=== PATIENT | male | born 1940 | race Caucasian/White ===

== ENCOUNTER 2018-01-07 18:53 | Inpatient (IN) | payer MEDICARE, MEDICAID ==
[~2018-01-07] VITALS: Ht 167.6 cm; Wt 50.4 kg
[~2018-01-07 18:53] MED LIST: ALBU0.63 NEB; ALBU8.5H5 INH; ASPI-621 PO; BUSP10TA PO; CARV-39 PO; CARV12.52 PO; CYCL1DRO OP; FURO-92 PO; FURO-93 PO; FURO20TA3 PO; LISI5TAB7 PO; MAGNESIUM DR64 MG PO; MULT1TAB13 PO; OMEP-110 PO; TIOT18CA INH; ZOLP10TA5 PO
[2018-01-07] MEDS ORDERED: BUSP10TA PO (20:42)
[2018-01-07] MEDS ORDERED: TRAZ300T2 PO (20:42)
[2018-01-07] MEDS ORDERED: OMEP40CA6 PO (20:42)
[2018-01-07] MEDS ORDERED: metformin PO (20:43)
[2018-01-07] MEDS ORDERED: ACETAMINOPHEN 325 MG TABLET ONE (20:59)
[2018-01-07] MEDS ORDERED: ACETAMINOPHEN 325 MG TABLET PO ONE (21:00)
[2018-01-07] MEDS ORDERED: TIOT18CA INH (21:00)
[2018-01-07] MEDS ORDERED: DIAZEPAM 5 MG/ML, 10ML VIAL IV ONE (21:00)
[2018-01-07 21:02] LABS: BASOPHILS # (AUTO) 0.03 x10^3/uL (0-0.1); BASOPHILS % (AUTO) 0 % (0-1); EOSINOPHILS % (AUTO) 1 % (1-7); LYMPHOCYTES # (AUTO) 0.55 x10^3/uL (1-3.4); LYMPHOCYTES % (AUTO) 4 % (22-44); MD NO; MEAN CORPUSCULAR HEMOGLOBIN 33.5 pg (27.5-34.5); MEAN CORPUSCULAR HGB CONC 33.4 g/dL (33.2-36.2); MEAN CORPUSCULAR VOLUME 100.2 fL (81-97); MEAN PLATELET VOLUME 7.7 fL (7.4-10.4); MONOCYTES # (AUTO) 0.47 x10^3/uL (0.2-0.8); MONOCYTES % (AUTO) 3 % (2-9); NEUTROPHILS # (AUTO) 12.74 x10^3/uL (1.8-6.8); NEUTROPHILS % (AUTO) 92 % (42-75); PLATELET COUNT 293 x10^3/uL (130-400); RED BLOOD COUNT 3.94 x10^6/uL (4.38-5.82); RED CELL DISTRIBUTION WIDTH 13.9 % (9.4-14.8)
[2018-01-07 21:12] LABS: INTERNATIONAL NORMALIZED RATIO 1.05 (0.93-1.1); PROTHROMBIN TIME 10.9 Seconds (9.6-11.5)
[2018-01-07 21:13] LABS: ALANINE AMINOTRANSFERASE 23 U/L (12-78); ALBUMIN 2.8 g/dL (3.4-5.0); ANION GAP 2 mmol/L (5-15); CALCIUM 8.3 mg/dL (8.5-10.1); CHLORIDE 94 mmol/L (98-107); CREATININE 1.05 mg/dL (0.7-1.3)
[2018-01-07 21:15] LABS: ALKALINE PHOSPHATASE 69 U/L (45-117); BILIRUBIN,TOTAL 0.5 mg/dL (0.2-1.0); TOTAL PROTEIN 6.2 g/dL (6.4-8.2)
[2018-01-07] MEDS ORDERED: ONDANSETRON 2MG/ML, 2ML IVPush PRN (21:30)
[2018-01-07] MEDS ORDERED: HEPARIN 5,000 UNITS/ML, 1ML SQ SCH (21:30)
[2018-01-07] MEDS ORDERED: hydrALAzine 20 MG/ML, 1ML IVPush PRN (21:30)
[2018-01-07] MEDS ORDERED: POLYETHYLENE GLYCOL 17 GM PACKET PO PRN (21:30)
[2018-01-07] MEDS ORDERED: PROMETHAZINE 25 MG/ML, 1ML IM PRN (21:30)
[2018-01-07] MEDS ORDERED: METHOCARBAMOL 500 MG TABLET PO PRN (21:30)
[2018-01-07] MEDS ORDERED: ONDANSETRON ODT 4 MG PO PRN (21:30)
[2018-01-07] MEDS ORDERED: DOCUSATE 100 MG CAPSULE PO PRN (21:30)
[2018-01-07] MEDS ORDERED: LABETALOL 5MG/ML, 20ML IVPush PRN (21:30)
[2018-01-07] MEDS ORDERED: BISACODYL 10 MG SUPP PR PRN (21:30)
[2018-01-07] MEDS ORDERED: GABAPENTIN 300 MG CAPSULE PO PRN (21:30)
[2018-01-07] MEDS ORDERED: morphine SULFATE 10 MG/ML, 1ML IVPush PRN (21:30)
[2018-01-07] MEDS: NICOTINE 14MG/24 HR PATCH.TD24 TD SCH (21:30)
[2018-01-07 21:46] LABS: HEMOGLOBIN A1C 6.6 % (4.2-6.3)
[2018-01-07] MEDS: SODIUM CHLORIDE 0.9% 1,000 ML IV SCH (21:53)
[2018-01-07 22:04] LABS: FREE T4 (FREE THYROXINE) 1.15 ng/dL (0.76-1.46); THYROID STIMULATING HORMONE 1.59 mIU/L (0.358-3.740)
[2018-01-07 22:12] VITALS: BP 127/66
[2018-01-07] MEDS: BUSPIRONE 10 MG TABLET PO SCH (23:01)
[2018-01-07] MEDS: TRAZODONE 150MG TABLET PO SCH (23:01)
[2018-01-07] MEDS ORDERED: ALBUTEROL/IPRATROPIUM 2.5MG/0.5MG, 3 ML NPPB PRN (23:30)
[2018-01-07] MEDS: INSULIN LISPRO 100 UNITS/ML, PEN SQ-INSULIN SCH (23:38)
[2018-01-07] MEDS: OXYcodone IR 5MG TABLET PO PRN (23:59)
[2018-01-08 00:46] VITALS: BP 86/47
[2018-01-08 02:09] VITALS: BP 108/66
[2018-01-08 03:35] LABS: CULTURE INDICATED? YES; MICROSCOPIC INDICATED
[2018-01-08 05:22] LABS: BASOPHILS % (AUTO) 0 % (0-1); EOSINOPHILS % (AUTO) 0 % (1-7); LYMPHOCYTES # (AUTO) 0.73 x10^3/uL (1-3.4); LYMPHOCYTES % (AUTO) 6 % (22-44); MD NO; MEAN CORPUSCULAR HEMOGLOBIN 33.5 pg (27.5-34.5); MEAN CORPUSCULAR HGB CONC 33.4 g/dL (33.2-36.2); MEAN CORPUSCULAR VOLUME 100.4 fL (81-97); MEAN PLATELET VOLUME 8.1 fL (7.4-10.4); MONOCYTES # (AUTO) 1.06 x10^3/uL (0.2-0.8); MONOCYTES % (AUTO) 8 % (2-9); NEUTROPHILS # (AUTO) 11.21 x10^3/uL (1.8-6.8); NEUTROPHILS % (AUTO) 86 % (42-75); PLATELET COUNT 231 x10^3/uL (130-400); RED BLOOD COUNT 3.43 x10^6/uL (4.38-5.82); RED CELL DISTRIBUTION WIDTH 13.9 % (9.4-14.8)
[2018-01-08 05:34] LABS: CHLORIDE 96 mmol/L (98-107)
[2018-01-08 05:42] LABS: ALANINE AMINOTRANSFERASE 23 U/L (12-78); ALBUMIN 2.8 g/dL (3.4-5.0); ALKALINE PHOSPHATASE 61 U/L (45-117); ANION GAP 6 mmol/L (5-15); CALCIUM 8.5 mg/dL (8.5-10.1); CHOL/HDL RATIO 2.2; CHOLESTEROL, TOTAL 84 mg/dL (140-239); CREATININE 0.92 mg/dL (0.7-1.3); HDL CHOL % 45 % (26-37); HDL CHOLESTEROL (DIRECT) 38 mg/dL (40-60); LDL CHOLESTEROL,CALCULATED 35 mg/dL (54-169); LDL/HDL RATIO 0.9 (0.5-3.0); TOTAL PROTEIN 5.6 g/dL (6.4-8.2); TRIGLYCERIDES 55 mg/dL (50-200); VLDL CHOLESTEROL 11 mg/dL (0-25)
[2018-01-08] MEDS: SODIUM CHLORIDE 0.9% 1,000 ML IV SCH (07:15)
[2018-01-08] MEDS: ALBUTEROL/IPRATROPIUM 2.5MG/0.5MG, 3 ML NPPB SCH ×4 (07:40→19:36)
[2018-01-08 07:45] VITALS: BP 124/68
[2018-01-08] MEDS ORDERED: CARVEDILOL 6.25 MG TABLET ONE (07:51)
[2018-01-08] MEDS: OMEPRAZOLE 20 MG CAPSULE.DR PO SCH (08:00)
[2018-01-08] MEDS: CARVEDILOL 12.5 MG TABLET PO SCH (08:01)
[2018-01-08] MEDS: BUSPIRONE 10 MG TABLET PO SCH ×2 (08:01→20:03)
[2018-01-08] MEDS: LISINOPRIL 5 MG TABLET PO SCH (08:02)
[2018-01-08] MEDS: OXYcodone IR 5MG TABLET PO PRN (08:02)
[2018-01-08] MEDS ORDERED: IPRATROPIUM 0.5 MG/2.5 ML INHA NPPB SCH (09:00)
[2018-01-08] MEDS: INSULIN LISPRO 100 UNITS/ML, PEN SQ-INSULIN SCH ×3 (11:30→20:06)
[2018-01-08] MEDS ORDERED: MIDAZOLAM 1 MG/ML, 2ML ONE (12:53)
[2018-01-08] MEDS ORDERED: FENTANYL PF 100 MCG/2ML ONE ×2 (12:53→14:56)
[2018-01-08] MEDS ORDERED: ROCURONIUM 10MG/ML,5ML ONE (13:17)
[2018-01-08] MEDS ORDERED: ONDANSETRON 2MG/ML, 2ML ONE (13:17)
[2018-01-08] MEDS ORDERED: PROPOFOL 10 MG/ML, 20ML ONE (13:17)
[2018-01-08] MEDS ORDERED: DEXAMETHASONE 4 MG/ML, 1ML ONE (13:17)
[2018-01-08] MEDS ORDERED: HALOPERIDOL 5 MG/ML IV PRN (13:30)
[2018-01-08] MEDS ORDERED: HYDROmorphone 1 MG/ML, 1ML IV PRN ×2 (13:30→16:30)
[2018-01-08] MEDS ORDERED: MORPHINE SULFATE 4 MG/ML, 1ML IVPush PRN (13:30)
[2018-01-08] MEDS ORDERED: ONDANSETRON 2MG/ML, 2ML IV PRN ×2 (13:30→16:30)
[2018-01-08] MEDS ORDERED: hydrALAzine 20 MG/ML, 1ML IV PRN (13:30)
[2018-01-08] MEDS ORDERED: LABETALOL 5MG/ML, 20ML IV PRN (13:30)
[2018-01-08] MEDS ORDERED: MEPERIDINE/PF 25MG/0.5ML IVPush PRN (13:30)
[2018-01-08] MEDS ORDERED: ALBUTEROL SULFATE 2.5 MG/3 ML NPPB PRN (13:30)
[2018-01-08] MEDS ORDERED: EPHEDRINE 50 MG/ML, 1ML IVPush PRN (13:30)
[2018-01-08] MEDS ORDERED: PROMETHAZINE 12.5 MG SUPP PR PRN (13:30)
[2018-01-08] MEDS ORDERED: ONDANSETRON ODT 8 MG PO PRN (13:30)
[2018-01-08] MEDS ORDERED: PROMETHAZINE 25 MG/ML, 1ML IV PRN (13:30)
[2018-01-08] MEDS ORDERED: HYDROmorphone 2 MG/ML, 1ML ONE (14:56)
[2018-01-08] MEDS ORDERED: OXYcodone 5 MG/5 ML ORAL.SOL UDC ONE (14:56)
[2018-01-08] MEDS: OXYcodone 5 MG/5 ML ORAL.SOL UDC PO PRN (14:59)
[2018-01-08] MEDS: FENTANYL PF 100 MCG/2ML IV PRN ×2 (15:02→15:09)
[2018-01-08] MEDS ORDERED: HYDROcodone/APAP 7.5-325MG/15ML UDC PO PRN (16:30)
[2018-01-08] MEDS: KETOROLAC 30 MG/1 ML IV SCH (16:30)
[2018-01-08] MEDS ORDERED: DIPHENHYDRAMINE 25 MG CAPSULE PO PRN (16:30)
[2018-01-08] MEDS ORDERED: OXYcodone/APAP 5/325MG TABLET PO PRN (16:30)
[2018-01-08] MEDS: metFORMIN 500 MG TABLET PO SCH (17:00)
[2018-01-08 19:00] VITALS: BP 98/49
[2018-01-08] MEDS: TRAZODONE 150MG TABLET PO SCH (20:03)
[2018-01-08] MEDS: SODIUM CHLORIDE FLUSH 10ML SYR IVF SCH (20:04)
[2018-01-08] MEDS: DOCUSATE 100 MG CAPSULE PO SCH (20:04)
[2018-01-08] MEDS: NICOTINE 14MG/24 HR PATCH.TD24 TD SCH (20:05)
[2018-01-08] MEDS ORDERED: SODIUM CHLORIDE 0.9% 1,000 ML IVBOLUS PRN (21:38)
[2018-01-08] MEDS ORDERED: SODIUM CHLORIDE 0.9%, 500ML IVBOLUS ONE (22:00)
[2018-01-08 22:45] VITALS: BP 88/50
[2018-01-08 23:00] VITALS: BP 80/43
[2018-01-09] VITALS (12 sets, daily range): BP systolic 88–128; BP diastolic 47–63
[2018-01-09] MEDS: CEFAZOLIN PMX 1GM/50ML 50 ML IVPB SCH ×2 (00:35→06:35)
[2018-01-09] MEDS: KETOROLAC 30 MG/1 ML IV SCH ×2 (00:35→07:55)
[2018-01-09] MEDS ORDERED: SODIUM CHLORIDE 0.9%, 500ML IVBOLUS ONE (02:30)
[2018-01-09] MEDS ORDERED: ENOXAPARIN 40 MG/0.4 ML SQ SCH (06:00)
[2018-01-09] MEDS: ALBUTEROL/IPRATROPIUM 2.5MG/0.5MG, 3 ML NPPB SCH ×4 (07:48→19:34)
[2018-01-09] MEDS: OMEPRAZOLE 20 MG CAPSULE.DR PO SCH (07:49)
[2018-01-09] MEDS: BUSPIRONE 10 MG TABLET PO SCH ×2 (07:49→20:56)
[2018-01-09] MEDS: LISINOPRIL 5 MG TABLET PO SCH ×2 (07:51→07:56)
[2018-01-09] MEDS: metFORMIN 500 MG TABLET PO SCH ×2 (07:52→16:50)
[2018-01-09] MEDS: CARVEDILOL 12.5 MG TABLET PO SCH (07:53)
[2018-01-09] MEDS: DOCUSATE 100 MG CAPSULE PO SCH ×2 (07:54→20:56)
[2018-01-09] MEDS: INSULIN LISPRO 100 UNITS/ML, PEN SQ-INSULIN SCH ×4 (07:55→20:57)
[2018-01-09] MEDS ORDERED: FUROSEMIDE 20 MG TABLET PO SCH (09:00)
[2018-01-09] MEDS: SODIUM CHLORIDE FLUSH 10ML SYR IVF SCH ×2 (09:00→20:56)
[2018-01-09 12:05] LABS: MEAN CORPUSCULAR HEMOGLOBIN 33.8 pg (27.5-34.5); MEAN CORPUSCULAR HGB CONC 33.7 g/dL (33.2-36.2); MEAN CORPUSCULAR VOLUME 100.1 fL (81-97); MEAN PLATELET VOLUME 7.7 fL (7.4-10.4); PLATELET COUNT 211 x10^3/uL (130-400); RED BLOOD COUNT 2.57 x10^6/uL (4.38-5.82); RED CELL DISTRIBUTION WIDTH 13.8 % (9.4-14.8)
[2018-01-09 12:11] LABS: ALBUMIN 2.3 g/dL (3.4-5.0); ANION GAP 6 mmol/L (5-15); CALCIUM 8.1 mg/dL (8.5-10.1); CHLORIDE 99 mmol/L (98-107); CREATININE 1.16 mg/dL (0.7-1.3)
[2018-01-09 12:20] LABS: BASOPHILS # (AUTO) 0.03 x10^3/uL (0-0.1); BASOPHILS % (AUTO) 0 % (0-1); EOSINOPHILS # (AUTO) 0.14 x10^3/uL (0-0.4); EOSINOPHILS % (AUTO) 1 % (1-7); LYMPHOCYTES # (AUTO) 0.66 x10^3/uL (1-3.4); LYMPHOCYTES % (AUTO) 4 % (22-44); MD SCAN; MONOCYTES # (AUTO) 1.51 x10^3/uL (0.2-0.8); MONOCYTES % (AUTO) 10 % (2-9); NEUTROPHILS # (AUTO) 13.12 x10^3/uL (1.8-6.8); NEUTROPHILS % (AUTO) 85 % (42-75)
[2018-01-09] MEDS: TRAZODONE 150MG TABLET PO SCH (20:55)
[2018-01-09] MEDS: NICOTINE 14MG/24 HR PATCH.TD24 TD SCH (20:57)
[2018-01-09] MEDS: ACETAMINOPHEN 325 MG TABLET PO PRN (21:12)
[2018-01-10 01:56] VITALS: BP 109/72
[2018-01-10 05:38] LABS: ALBUMIN 2.2 g/dL (3.4-5.0); ANION GAP 5 mmol/L (5-15); CALCIUM 7.9 mg/dL (8.5-10.1); CHLORIDE 97 mmol/L (98-107); CREATININE 1.13 mg/dL (0.7-1.3)
[2018-01-10 05:57] LABS: MEAN CORPUSCULAR HEMOGLOBIN 33.3 pg (27.5-34.5); MEAN CORPUSCULAR HGB CONC 33.8 g/dL (33.2-36.2); MEAN CORPUSCULAR VOLUME 98.6 fL (81-97); MEAN PLATELET VOLUME 7.9 fL (7.4-10.4); PLATELET COUNT 181 x10^3/uL (130-400)
[2018-01-10 05:58] LABS: HEMOGRAM NOTE RECHECKED
[2018-01-10 06:42] LABS: BASOPHILS # (AUTO) 0.01 x10^3/uL (0-0.1); BASOPHILS % (AUTO) 0 % (0-1); EOSINOPHILS # (AUTO) 0.31 x10^3/uL (0-0.4); EOSINOPHILS % (AUTO) 3 % (1-7); LYMPHOCYTES % (AUTO) 6 % (22-44); MD SCAN; MONOCYTES # (AUTO) 0.76 x10^3/uL (0.2-0.8); MONOCYTES % (AUTO) 7 % (2-9); NEUTROPHILS # (AUTO) 9.26 x10^3/uL (1.8-6.8); NEUTROPHILS % (AUTO) 84 % (42-75)
[2018-01-10 07:10] VITALS: BP 151/65
[2018-01-10 08:16] VITALS: BP 127/59
[2018-01-10] MEDS: INSULIN LISPRO 100 UNITS/ML, PEN SQ-INSULIN SCH ×4 (08:21→20:17)
[2018-01-10 08:35] VITALS: BP 123/63
[2018-01-10] MEDS: FUROSEMIDE 20 MG TABLET PO SCH (08:46)
[2018-01-10] MEDS: CARVEDILOL 12.5 MG TABLET PO SCH (08:48)
[2018-01-10] MEDS: LISINOPRIL 5 MG TABLET PO SCH (08:49)
[2018-01-10] MEDS: BUSPIRONE 10 MG TABLET PO SCH ×2 (08:49→20:16)
[2018-01-10] MEDS: OMEPRAZOLE 20 MG CAPSULE.DR PO SCH (08:49)
[2018-01-10] MEDS: DOCUSATE 100 MG CAPSULE PO SCH ×2 (08:49→20:16)
[2018-01-10] MEDS: SODIUM CHLORIDE FLUSH 10ML SYR IVF SCH ×2 (08:51→20:16)
[2018-01-10 10:50] LABS: ABSOLUTE RETICS # 0.045 x10^6/uL (0.5-1.5); RED BLOOD COUNT 2.31 x10^6/uL (4.38-5.82); RETICULOCYTE COUNT % 1.97 % (0.5-1.5)
[2018-01-10] MEDS: ACETAMINOPHEN 325 MG TABLET PO PRN (13:27)
[2018-01-10 14:00] VITALS: BP 126/67
[2018-01-10 20:03] VITALS: BP 121/66
[2018-01-10] MEDS: TRAZODONE 150MG TABLET PO SCH (20:16)
[2018-01-10] MEDS: ALBUTEROL/IPRATROPIUM 2.5MG/0.5MG, 3 ML NPPB SCH (21:00)
[2018-01-10] MEDS: NICOTINE 14MG/24 HR PATCH.TD24 TD SCH (21:30)
[2018-01-11 02:11] VITALS: BP 143/83
[2018-01-11 06:41] VITALS: BP 159/69
[2018-01-11] MEDS: INSULIN LISPRO 100 UNITS/ML, PEN SQ-INSULIN SCH ×4 (07:00→20:24)
[2018-01-11] MEDS: ALBUTEROL/IPRATROPIUM 2.5MG/0.5MG, 3 ML NPPB SCH ×2 (08:15→20:00)
[2018-01-11] MEDS: OMEPRAZOLE 20 MG CAPSULE.DR PO SCH (08:39)
[2018-01-11] MEDS: OXYcodone 5 MG/5 ML ORAL.SOL UDC PO PRN (08:39)
[2018-01-11 08:49] LABS: BASOPHILS # (AUTO) 0.01 x10^3/uL (0-0.1); BASOPHILS % (AUTO) 0 % (0-1); EOSINOPHILS % (AUTO) 2 % (1-7); LYMPHOCYTES % (AUTO) 3 % (22-44); MD NO; MEAN PLATELET VOLUME 7.5 fL (7.4-10.4); MONOCYTES % (AUTO) 7 % (2-9); NEUTROPHILS # (AUTO) 7.65 x10^3/uL (1.8-6.8); NEUTROPHILS % (AUTO) 87 % (42-75); PLATELET COUNT 221 x10^3/uL (130-400); RED BLOOD COUNT 2.86 x10^6/uL (4.38-5.82); RED CELL DISTRIBUTION WIDTH 14.9 % (9.4-14.8)
[2018-01-11 08:52] LABS: ANION GAP 5 mmol/L (5-15); CALCIUM 8.4 mg/dL (8.5-10.1); CHLORIDE 95 mmol/L (98-107); CREATININE 0.79 mg/dL (0.7-1.3)
[2018-01-11] MEDS: DOCUSATE 100 MG CAPSULE PO SCH ×2 (09:00→20:22)
[2018-01-11] MEDS: BUSPIRONE 10 MG TABLET PO SCH ×2 (10:34→20:22)
[2018-01-11] MEDS: CARVEDILOL 12.5 MG TABLET PO SCH (10:37)
[2018-01-11] MEDS: FUROSEMIDE 20 MG TABLET PO SCH (10:40)
[2018-01-11] MEDS: SODIUM CHLORIDE FLUSH 10ML SYR IVF SCH ×2 (10:46→20:22)
[2018-01-11 12:11] VITALS: BP 113/59
[2018-01-11 12:18] VITALS: BP 117/57
[2018-01-11] MEDS: LISINOPRIL 5 MG TABLET PO SCH (12:22)
[2018-01-11 14:23] VITALS: BP 95/52
[2018-01-11 20:05] VITALS: BP 136/73
[2018-01-11] MEDS: TRAZODONE 150MG TABLET PO SCH (20:21)
[2018-01-11] MEDS: NICOTINE 14MG/24 HR PATCH.TD24 TD SCH (20:24)
[2018-01-12 01:27] VITALS: BP 135/78
[2018-01-12] MEDS: ACETAMINOPHEN 325 MG TABLET PO PRN (05:03)
[2018-01-12] MEDS: INSULIN LISPRO 100 UNITS/ML, PEN SQ-INSULIN SCH ×4 (07:00→20:17)
[2018-01-12 07:11] VITALS: BP 132/62
[2018-01-12] MEDS: ALBUTEROL/IPRATROPIUM 2.5MG/0.5MG, 3 ML NPPB SCH ×2 (07:28→19:47)
[2018-01-12] MEDS: DOCUSATE 100 MG CAPSULE PO SCH ×2 (07:55→20:16)
[2018-01-12] MEDS: CARVEDILOL 12.5 MG TABLET PO SCH (07:56)
[2018-01-12] MEDS: OMEPRAZOLE 20 MG CAPSULE.DR PO SCH (07:56)
[2018-01-12] MEDS: FUROSEMIDE 20 MG TABLET PO SCH (07:56)
[2018-01-12] MEDS: BUSPIRONE 10 MG TABLET PO SCH ×2 (07:56→20:16)
[2018-01-12] MEDS: LISINOPRIL 5 MG TABLET PO SCH (07:58)
[2018-01-12] MEDS: SODIUM CHLORIDE FLUSH 10ML SYR IVF SCH ×2 (07:58→20:17)
[2018-01-12 09:31] LABS: ALBUMIN 2.3 g/dL (3.4-5.0); ANION GAP 5 mmol/L (5-15); CALCIUM 8.5 mg/dL (8.5-10.1); CHLORIDE 96 mmol/L (98-107); CREATININE 0.79 mg/dL (0.7-1.3)
[2018-01-12] MEDS: OXYcodone IR 5MG TABLET PO PRN (11:51)
[2018-01-12 12:33] VITALS: BP 104/57
[2018-01-12] MEDS ORDERED: DIPHENHYDRAMINE 50 MG CAPSULE PO ONE (18:30)
[2018-01-12 20:02] VITALS: BP 94/58
[2018-01-12] MEDS: TRAZODONE 150MG TABLET PO SCH (20:16)
[2018-01-12] MEDS: NICOTINE 14MG/24 HR PATCH.TD24 TD SCH (20:18)
[2018-01-13 01:10] VITALS: BP 141/60
[2018-01-13] MEDS: ACETAMINOPHEN 325 MG TABLET PO PRN ×2 (01:24→13:07)
[2018-01-13 07:00] VITALS: BP 145/74
[2018-01-13] MEDS: INSULIN LISPRO 100 UNITS/ML, PEN SQ-INSULIN SCH ×3 (07:00→16:00)
[2018-01-13 07:10] LABS: ALBUMIN 2.4 g/dL (3.4-5.0); ANION GAP 5 mmol/L (5-15); CALCIUM 8.2 mg/dL (8.5-10.1); CHLORIDE 96 mmol/L (98-107); CREATININE 0.88 mg/dL (0.7-1.3)
[2018-01-13] MEDS: CARVEDILOL 12.5 MG TABLET PO SCH (08:21)
[2018-01-13] MEDS: DOCUSATE 100 MG CAPSULE PO SCH (08:21)
[2018-01-13] MEDS: OMEPRAZOLE 20 MG CAPSULE.DR PO SCH (08:21)
[2018-01-13] MEDS: BUSPIRONE 10 MG TABLET PO SCH (08:21)
[2018-01-13] MEDS: LISINOPRIL 5 MG TABLET PO SCH (08:21)
[2018-01-13] MEDS: SODIUM CHLORIDE FLUSH 10ML SYR IVF SCH (08:23)
[2018-01-13] MEDS: ALBUTEROL/IPRATROPIUM 2.5MG/0.5MG, 3 ML NPPB SCH (08:25)
[2018-01-13 12:33] VITALS: BP 128/60
[2018-01-13] MEDS ORDERED: DOCU-131 PO (14:05)
[2018-01-13] MEDS ORDERED: ONDA8TAB16 PO (14:05)
[2018-01-13] MEDS ORDERED: TRAM50TA2 PO (14:05)
== END 2018-01-13 16:51 | DRG 480 ==
LOC: ED 20:34 → EDIP 20:40 → 4NOR 21:20 → 4EST 01-08 22:29
PROVIDERS: ADMIT Internal Medicine; ATTEND Internal Medicine
PROC: 0QS606Z Reposition Right Upper Femur with Intramedullary Internal Fixation Device, Open Approach (ICD-10-PCS; principal; 2018-01-08 13:00)
PROC: 30233N1 Transfusion of Nonautologous Red Blood Cells into Peripheral Vein, Percutaneous Approach (ICD-10-PCS; 2018-01-10)
DX: S72.141A Displaced intertrochanteric fracture of right femur, initial encounter for closed fracture (principal); J96.20 Acute and chronic respiratory failure, unspecified whether with hypoxia or hypercapnia; E44.0 Moderate protein-calorie malnutrition; I50.22 Chronic systolic (congestive) heart failure; D62 Acute posthemorrhagic anemia; E87.1 Hypo-osmolality and hyponatremia; E87.3 Alkalosis; Z68.1 Body mass index [BMI] 19.9 or less, adult; S72.23XA Displaced subtrochanteric fracture of unspecified femur, initial encounter for closed fracture; W01.0XXA Fall on same level from slipping, tripping and stumbling without subsequent striking against object, initial encounter; Y93.89 Activity, other specified; Y99.8 Other external cause status; I11.0 Hypertensive heart disease with heart failure; D72.829 Elevated white blood cell count, unspecified; D75.89 Other specified diseases of blood and blood-forming organs; E11.9 Type 2 diabetes mellitus without complications; F17.210 Nicotine dependence, cigarettes, uncomplicated; F41.1 Generalized anxiety disorder; G89.29 Other chronic pain; H91.90 Unspecified hearing loss, unspecified ear; J44.9 Chronic obstructive pulmonary disease, unspecified; K21.9 Gastro-esophageal reflux disease without esophagitis; Z87.11 Personal history of peptic ulcer disease; Z99.81 Dependence on supplemental oxygen; Y92.000 Kitchen of unspecified non-institutional (private) residence as the place of occurrence of the external cause; Z88.8 Allergy status to other drugs, medicaments and biological substances
CPT/HCPCS: 36415; 36600; 71045; 74177; 76000; 80048; 80053; 80061; 81001; 82040; 82306; 82607; 82728; 82803; 82962; 83010; 83036; 83540; 83550; 83605; 83735; 84439; 84443; 85014; 85018; 85025; 85045; 85610; 85730; 86850; 86900; 86923; 87040; 87086; 93005; 94640; 99285; C1713; G0378; J0690; J1100; J1650; J1885; J2250; J2405; J2704; J3010; J3360; J7620; J7030; J7040; P9016